=== PATIENT | female | born 1970 | race Caucasian/White ===

== ENCOUNTER 2023-03-31 14:31 | Emergency (ER) | payer MEDICAID, OTHER ==
[~2023-03-31] VITALS: Ht 172.7 cm; Wt 61.2 kg
[2023-03-31 14:39] VITALS: BP_SYST 137; PULSE 97; RESP 18; TEMP 98; O2SAT 97
[2023-03-31 15:36] LABS: CALCIUM 9.2 mg/dL (8.4-11.0); CREATININE 0.75 mg/dL (0.55-1.30)
[2023-03-31 15:40] LABS: ALBUMIN 4.3 g/dL (3.4-4.8); BASOPHILS # (AUTO) 0.1 K/uL (0.0-0.2); BASOPHILS % (AUTO) 1.2 % (0.0-2.0); EOSINOPHILS # (AUTO) 0.1 K/uL (0.0-0.4); HEMATOCRIT 40.1 % (36-48); HEMOGLOBIN 13.6 g/dL (12.0-16.0); LYMPHOCYTES # (AUTO) 1.9 K/uL (1.0-5.5); LYMPHOCYTES % (AUTO) 34.9 % (20.5-51.5); MEAN CORPUSCULAR HEMOGLOBIN 33 pg (27-31); MEAN CORPUSCULAR HGB CONC 34 % (32-36); MEAN CORPUSCULAR VOLUME 96 fL (79.0-98.0); MONOCYTES # (AUTO) 0.6 K/uL (0.0-1.0); MONOCYTES % (AUTO) 10.8 % (1.7-9.3); NEUTROPHILS # (AUTO) 2.8 K/uL (1.8-7.7); NEUTROPHILS % (AUTO) 52.1 % (40.0-70.0); PLATELET COUNT (AUTO) 211 K/uL (130-430); RED BLOOD CELL COUNT(AUTO) 4.19 MIL/uL (4.2-6.2); RED CELL DISTRIBUTION WIDTH 14.5 % (9.0-15.0); TOTAL BILIRUBIN 0.4 mg/dL (0.0-1.0); WHITE BLOOD COUNT (AUTO) 5.5 K/uL (4.8-10.8)
[2023-03-31] MEDS ORDERED: MAGNESIUM SULFATE 4 GM in D5W 250 ML IV ONE (16:45)
[2023-03-31] MEDS ORDERED: KCL 20 mEq in 100 mL (PREMIX) 100 ML IV ONE (16:45)
[2023-03-31] MEDS ORDERED: MAGNESIUM SULFATE 50 ML IV ONE (17:00)
[2023-03-31] MEDS ORDERED: POTASSIUM CHLORIDE 20 MEQ/PKT PACKET PO ONE (17:00)
[2023-03-31 19:02] VITALS: BP_SYST 164; PULSE 72; RESP 18; TEMP 98.2; O2SAT 98
== END 2023-03-31 19:02 | disposition home or self-care (01) ==
LOC: SED 14:31
DX: R29.0 Tetany (principal); E83.42 Hypomagnesemia; E87.6 Hypokalemia; Z88.6 Allergy status to analgesic agent; Z79.899 Other long term (current) drug therapy
CPT/HCPCS: 99284; 96365; 80053; 84703; 83735; 85025; 36415; J3475

== ENCOUNTER 2023-06-13 08:53 | Emergency (ER) | payer MEDICAID, OTHER ==
[~2023-06-13] VITALS: Ht 172.7 cm; Wt 63.5 kg
[2023-06-13 09:16] VITALS: BP_SYST 161; PULSE 96; RESP 18; TEMP 98.3; O2SAT 99
[2023-06-13 10:44] LABS: BASOPHILS % (AUTO) 0.7 % (0.0-2.0); EOSINOPHILS # (AUTO) 0.1 K/uL (0.0-0.4); EOSINOPHILS % (AUTO) 1.3 % (0.0-4.0); HEMATOCRIT 40.6 % (36-48); HEMOGLOBIN 13.4 g/dL (12.0-16.0); LYMPHOCYTES % (AUTO) 18.8 % (20.5-51.5); MEAN CORPUSCULAR HEMOGLOBIN 32 pg (27-31); MEAN CORPUSCULAR HGB CONC 33 % (32-36); MEAN CORPUSCULAR VOLUME 97 fL (79.0-98.0); MONOCYTES # (AUTO) 0.5 K/uL (0.0-1.0); NEUTROPHILS # (AUTO) 3.9 K/uL (1.8-7.7); NEUTROPHILS % (AUTO) 70.2 % (40.0-70.0); PLATELET COUNT (AUTO) 194 K/uL (130-430); RED BLOOD CELL COUNT(AUTO) 4.19 MIL/uL (4.2-6.2); RED CELL DISTRIBUTION WIDTH 14.5 % (9.0-15.0); WHITE BLOOD COUNT (AUTO) 5.5 K/uL (4.8-10.8)
[2023-06-13 11:00] LABS: CALCIUM 8.6 mg/dL (8.4-11.0); CREATININE 0.74 mg/dL (0.55-1.30); POTASSIUM 3.2 mmol/L (3.5-5.1)
[2023-06-13] MEDS ORDERED: POTASSIUM CHLORIDE 10 MEQ TAB.PRT.SR PO ONE (11:15)
[2023-06-13] MEDS ORDERED: MAGNESIUM SULFATE 1 GM/2 ML VIAL IVP ONE (11:15)
[2023-06-14] MEDS ORDERED: ACET-2634 PO (04:14)
[2023-06-14] MEDS ORDERED: NEU300 PO (04:14)
== END 2023-06-13 12:53 | disposition home or self-care (01) ==
LOC: SED 08:53
DX: E83.42 Hypomagnesemia (principal); E87.6 Hypokalemia; I10 Essential (primary) hypertension; E78.5 Hyperlipidemia, unspecified; Z88.6 Allergy status to analgesic agent; Z79.899 Other long term (current) drug therapy
CPT/HCPCS: 99283; 96374; 80048; 83735; 85025; 36415; J3475

== ENCOUNTER 2023-06-14 03:36 | Emergency (ER) | payer OTHER ==
[~2023-06-14] VITALS: Ht 170.2 cm; Wt 65.8 kg
[2023-06-14 03:40] VITALS: BP_SYST 150; PULSE 82; RESP 18; TEMP 98.3; O2SAT 96
[2023-06-14] MEDS ORDERED: GABAPENTIN 300 MG CAPSULE PO ONE (04:00)
[2023-06-14] MEDS ORDERED: NEU300 PO (04:14)
[2023-06-14] MEDS ORDERED: ACET-2634 PO (04:14)
[2023-06-14 04:32] VITALS: BP_SYST 150; PULSE 74; RESP 16; TEMP 98.1; O2SAT 95
== END 2023-06-14 04:32 | disposition home or self-care (01) ==
LOC: SED 03:36
DX: M25.562 Pain in left knee (principal); I10 Essential (primary) hypertension; E78.5 Hyperlipidemia, unspecified; Z88.6 Allergy status to analgesic agent; Z79.899 Other long term (current) drug therapy
CPT/HCPCS: 73560-TC; 99283

== ENCOUNTER 2023-07-13 16:29 | Emergency (ER) | payer OTHER ==
[~2023-07-13 16:29] MED LIST: ACET-2634 PO; NEU300 PO
== END 2023-07-13 17:45 | disposition left against medical advice (07) ==
LOC: SED 16:29
DX: E61.2 Magnesium deficiency (principal); Z53.21 Procedure and treatment not carried out due to patient leaving prior to being seen by health care provider